=== PATIENT | female | born 1960 | race Caucasian/White ===

== ENCOUNTER 2018-10-13 08:24 | Emergency (ER) | payer MEDICAID ==
[~2018-10-13] VITALS: Ht 152.4 cm; Wt 60.9 kg
[2018-10-13 08:29] VITALS: Ht 152.4 cm; Wt 60.9 kg
--- NOTE | 2018-10-13 08:44 | ERD ---
ER Documentation Chief Complaint Chief Complaint abdominal pain x2 wks denies n/v/d HPI 57-year-old female, history of hypertension ambulatory to the ED complaining of a 2-week history of constant, waxing and waning, moderate, burning, nonradiating epigastric pain. Mild intermittent nausea but no vomiting, diarrhea or constipation. Denies hematemesis, hematochezia or melena. Pain is sometimes exacerbated by eating but there are no relieving factors. Denies dysuria, polyuria, hematuria or back pain. No vaginal discharge or bleeding. Denies chest pain, palpitations, shortness of breath or cough. No skin rash. No fever s or chills. ROS All systems reviewed and are negative except as per history of present illness. Medications Home Meds Active Scripts Famotidine* (Pepcid*) 20 Mg Tablet, 20 MG PO BID for 14 Days, TAB Prov:ERIC DAI MD 10/13/18 Sucralfate* (Carafate*) 1 Gm Tab, 1 GM PO QID, #7 TAB Prov:ERIC DAI MD 10/13/18 Reported Medications Lisinopril* (Lisinopril*) 10 Mg Tablet, 10 MG PO DAILY, #30 TAB 10/13/18 Allergies Allergies: Coded Allergies: No Known Allergy (Unverified , 10/13/18) PMhx/Soc History of Surgery: No Anesthesia Reaction: No Hx Neurological Disorder: No Hx Respiratory Disorders: No Hx Cardiac Disorders: Yes (Hypertension) Hx Psychiatric Problems: No Hx Miscellaneous Medical Probl: No Hx Alcohol Use: No Hx Substance Use: No Hx Tobacco Use: No FmHx No cancer, early heart disease or stroke Physical Exam Vitals Vital Signs Date Temp Pulse Resp B/P (MAP) Pulse Ox O2 O2 Flow FiO2 Time Delivery Rate 10/13/18 98.2 63 18 142/66 100 Room Air 10:50 (91) 10/13/18 98.4 59 18 140/63 100 08:29 (88) Physical Exam Const: Mild distress. Head: Atraumatic Eyes: Normal Conjunctiva. Anicteric ENT: Normal External Ears, Nose and Mouth. Neck: Full range of motion. Nontender. No meningismus. Resp: Breath sounds are equal and clear to auscultation bilaterally Cardio: Regular rate and rhythm, no murmurs Abd: Soft, non distended, mild epigastric tenderness but no rebound or guarding. No right or left lower quadrant tenderness. Negative Reynolds sign. Normal bowel sounds Skin: No petechiae or rashes Back: No midline or flank tenderness Ext: No cyanosis, or edema Neur: Awake and alert. No focal deficit. Psych: Normal Mood and Affect Result Diagram: 10/13/1890110/13/18901 Results 24 hrs Laboratory Tests Test 10/13/18 09:02 White Blood Count 3.7 10^3/ul Red Blood Count 4.46 10^6/ul Hemoglobin 13.1 g/dl Hematocrit 40.1 % Mean Corpuscular Volume 89.9 fl Mean Corpuscular Hemoglobin 29.4 pg Mean Corpuscular Hemoglobin Concent 32.7 g/dl Red Cell Distribution Width 13.1 % Platelet Count 256 10^3/UL Mean Platelet Volume 10.2 fl Immature Granulocytes % 0.300 % Neutrophils % 53.4 % Lymphocytes % 34.2 % Monocytes % 7.8 % Eosinophils % 3.5 % Basophils % 0.8 % Nucleated Red Blood Cells % 0.0 /100WBC Immature Granulocytes # 0.010 10^3/ul Neutrophils # 2.0 10^3/ul Lymphocytes # 1.3 10^3/ul Monocytes # 0.3 10^3/ul Eosinophils # 0.1 10^3/ul Basophils # 0.0 10^3/ul Nucleated Red Blood Cells # 0.0 10^3/ul Urine Color STRAW Urine Clarity SLIGHTLY CLOUDY Urine pH 7.0 Urine Specific [place] 1.009 Urine Ketones NEGATIVE mg/dL Urine Nitrite NEGATIVE mg/dL Urine Bilirubin NEGATIVE mg/dL Urine Urobilinogen NEGATIVE mg/dL Urine Leukocyte Esterase 3+ Olvin/ul Urine Microscopic RBC 11 /HPF Urine Microscopic WBC 14 /HPF Urine Squamous Epithelial Cells MODERATE /HPF Urine Bacteria FEW /HPF Urine Hemoglobin 2+ mg/dL Urine Glucose NEGATIVE mg/dL Urine Total Protein NEGATIVE mg/dl Sodium Level 143 mmol/L Potassium Level 4.5 mmol/L Chloride Level 106 mmol/L Carbon Dioxide Level 28 mmol/L Anion Gap 9 Blood Urea Nitrogen 19 mg/dl Creatinine 0.60 mg/dl Est Glomerular Filtrat Rate mL/min > 60 mL/min Glucose Level 96 mg/dl Calcium Level 9.9 mg/dl Total Bilirubin 0.4 mg/dl Direct Bilirubin 0.00 mg/dl Indirect Bilirubin 0.4 mg/dl Aspartate Amino Transf (AST/SGOT) 28 IU/L Alanine Aminotransferase (ALT/SGPT) 25 IU/L Alkaline Phosphatase 107 IU/L Troponin I < 0.012 ng/ml Total Protein 7.7 g/dl Albumin 4.5 g/dl Globulin 3.20 g/dl Albumin/Globulin Ratio 1.40 Lipase 140 U/L Current Medications Medications Dose Sig/Evelyn Start Time Status Last (Trade) Ordered Route PRN Stop Time Admin Dose Reason Admin Ondansetron 4 mg ONCE STAT 10/13/18 DC 10/13/18 HCl (Zofran IV 08:48 10/13/18 09:10 Inj) 08:50 Famotidine 20 mg ONCE STAT 10/13/18 DC 10/13/18 (Pepcid Iv) IV 08:48 10/13/18 09:10 08:50 40 ml ONCE STAT 10/13/18 DC 10/13/18 Miscellaneous PO 08:48 10/13/18 09:10 Medication 08:50 (Gi Cocktail (2)) Procedures/MDM DOCUMENTS REVIEWED: ED nurse, no prior records LAB INTERPRETATION: CBC to evaluate for leukocytosis, anemia and thrombocytopenia is unremarkable. Chemistry is negative for renal insufficiency or electrolyte abnormalities. LFTs to evaluate for hyperbilirubinemia and transaminitis are normal. Lipase to evaluate for pancreatitis is negative. EKG: Time: 09:04. Sinus bradycardia. Ventricular rate 55. No ectopy. Normal NV QRS. No ST segment elevation or depression. Normal axis. My Interpretation REEXAMINATION/REEVALUATION: Time: 1024. Pain resolved. Abdomen soft nontender. [employer]-year-old female, history of hypertension ambulatory to the ED complaining of a 2-week history of constant, waxing and waning, moderate, burning, nonradiating epigastric pain. No chest pain, elevated troponin, ischemic EKG changes or evidence of acute coronary syndrome. No right upper quadrant tenderness, abnormal liver function tests or signs of cholelithiasis, cholecystitis or cholangitis and imaging is deferred. Abdominal exam is benign without significant tenderness, rebound, guarding or signs of peritonitis hence no indication for CT scan. Presentation consistent with gastritis/GERD versus peptic ulcer disease. Pain relieved with H2 blockers and GI cocktail. Patient will require further evaluation and possible endoscopy to evaluate for H. pylori and an occult neoplasm. Stable for discharge with H2 blockers, Carafate precautionary instructions and outpatient follow-up as counseled. Though the patient's latest blood pressure was elevated (>120/80), the patient has a known history of hypertension and urged to pursue adjustment of their medical therapy within a week with their primary care physician. Please refer to the medication reconciliation form for the current list of hypertensive medications. Counseled patient regarding diagnostic workup, diagnosis and need for followup. Understands to return to ED if symptoms recur, worsen or any other concerns. Departure Diagnosis: Primary Impression: Abdominal pain, acute, epigastric Additional Impressions: Acute gastritis without bleeding Gastritis type: unspecified gastritis Qualified Codes: K29.00 - Acute gastritis without bleeding Hypertension Hypertension type: essential hypertension Qualified Codes: I10 - Essential (primary) hypertension Condition: Stable (Improved) ERIC DAI MD Oct 13, 2018 08:44
[2018-10-13] MEDS ORDERED: ONDANSETRON 4 MG INJ IV STA (08:48)
[2018-10-13] MEDS ORDERED: LIDOCAINE/MYLANTA 40 ML BTL PO STA (08:48)
[2018-10-13] MEDS ORDERED: FAMOTIDINE 20 MG INJ IV STA (08:48)
[2018-10-13] MEDS ORDERED: LISI10TA2 PO (10:07)
[2018-10-13] MEDS ORDERED: FAMO-96 PO (10:37)
[2018-10-13] MEDS ORDERED: SUCR1TAB56 PO (10:37)
[2018-10-13 10:50] VITALS: BP 142/66; PULSE 63; RESP 18
== END 2018-10-13 10:52 | disposition home or self-care (01) ==
LOC: E/R 08:24
DX: K29.00 Acute gastritis without bleeding (principal); I10 Essential (primary) hypertension
CPT/HCPCS: 36415; 80053; 81001; 83690; 84484; 85025; 93005; 96374; 96375; J2405; Z7502; Z7610